=== PATIENT | male | born 1970 | race Caucasian/White ===

== ENCOUNTER 2020-05-20 09:44 | Emergency (ER) | payer SELFPAY ==
--- NOTE | 2020-05-20 09:50 | EDM.PDOC ---
ED HPI GENERAL MEDICAL PROBLEM - General Chief Complaint: Laceration Stated Complaint: CUT ON WRIST Time Seen by Provider: 05/20/20 09:47 Source of Information: Reports: Patient History Limitations: Reports: No Limitations - History of Present Illness INITIAL COMMENTS - FREE TEXT/NARRATIVE: 50-year-old male no relevant past medical history presents for laceration to wrist. Patient was cutting carpet when he accidentally cut his wrist with a carpet knife. He states he was a heavy amount of bleeding but denies any spurting or pulsatile bleeding. R wrist Pain Score (Numeric/FACES): 5 - Related Data Allergies Allergy/AdvReac Type Severity Reaction Status Date / Time No Known Allergies Allergy Verified 05/20/20 10:07 Home Meds: Home Meds . [No Known Home Meds] 05/20/20 [History] ED ROS GENERAL - Review of Systems Review Of Systems: Comprehensive ROS is negative, except as noted in HPI. ED EXAM, SKIN/RASH Exam: See Below Exam Limited By: No Limitations General Appearance: Alert, WD/WN, No Apparent Distress ED SKIN PROCEDURES - Laceration/Wound Repair Right Ventral Wrist Appearance: Superficial, Subcutaneous, Muscle Distal NVT: Neuro & Vascular Intact Anesthetic Type: Local Local Anesthesia - Lidocaine (Xylocaine): 1% with EPI Local Anesthetic Volume: Other (10) Skin Prep: Providone-Iodine (Betadine) Saline Irrigation (cc's): 100 Exploration/Debridement/Repair: Wound Explored Closed with: Sutures Lac/Wound length In cm: 10 Suture Size: 4-0 # of Sutures: 10 Suture Type: Nylon Sterile Dressing Applied: Nurse Tetanus Status Addressed: Yes Complications: Yes Course - Vital Signs Last Recorded V/S: Last Vital Signs Temp 96.8 F L 05/20/20 09:47 Pulse 82 05/20/20 09:47 Resp 17 05/20/20 09:47 BP 107/59 L 05/20/20 09:47 Pulse Ox 99 05/20/20 09:47 - Orders/Labs/Meds Meds: Medications Discontinued Medications Generic Name Dose Route Start Last Admin Trade Name Freq PRN Reason Stop Dose Admin Octyl Cyanoacrylate 1 applic 05/20/20 10:24 Dermabond Mini TOP 05/20/20 10:25 ONETIME ONE Departure - Departure Time of Disposition: 10:27 Disposition: Home, Self-Care 01 Condition: Good Clinical Impression: Laceration - Discharge Information Instructions: Laceration Care, Adult Forms: ED Department Discharge Additional Instructions: No need to return to the emergency department or an urgent care or your primary care physician in 7 to 10 days for suture removal. Watch out for signs of infection including worsening redness, pain, swelling, drainage of pus. Do not submerge in dirty water such as a bathtub or pond. You can clean with soap and water. Will bandage it today, but you can leave it open to air as long as you are keeping it clean. If you do need to do any work that may potentially contaminate the wound, you should wear gloves. You should wash your hands after. The following information is given to patients seen in the emergency department who are being discharged to home. This information is to outline your options for follow-up care. We provide all patients seen in our emergency department with a follow-up referral. The need for follow-up, as well as the timing and circumstances, are variable depending upon the specifics of your emergency department visit. If you don't have a primary care physician on staff, we will provide you with a referral. We always advise you to contact your personal physician following an emergency department visit to inform them of the circumstance of the visit and for follow-up with them and/or the need for any referrals to a consulting specialist. The emergency department will also refer you to a specialist when appropriate. This referral assures that you have the opportunity for follow-up care with a specialist. All of these measure are taken in an effort to provide you with optimal care, which includes your follow-up. Under all circumstances we always encourage you to contact your private physician who remains a resource for coordinating your care. When calling for follow-up care, please make the office aware that this follow-up is from your recent emergency room visit. If for any reason you are refused follow-up, please contact the [facility] Emergency Department at and asked to speak to the emergency department charge nurse. Please follow up with your primary care physician. If you do not have a primary care physician, see below: [facility] [address] [place] [id number] [facility] [address] [place] [id number] [facility] [address] [place] [address] Sepsis Event Note (ED) - Focused Exam Vital Signs: Vital Signs Temp Pulse Resp BP Pulse Ox 05/20/20 09:47 96.8 F L 82 17 107/59 L 99
[2020-05-20] MEDS ORDERED: Octyl 2-Cyanoacrylate 1 APPLIC TUBE TOP ONE (10:24)
== END 2020-05-20 11:24 | disposition home or self-care (01) ==
LOC: MW.ED 09:44
DX: S61.511A Laceration without foreign body of right wrist, initial encounter (principal); W26.0XXA Contact with knife, initial encounter
CPT/HCPCS: 12004; 99282; A9270